=== PATIENT | female | born 1985 | race Caucasian/White ===

== ENCOUNTER 2016-09-10 14:19 | Emergency (ER) | payer BC ==
--- NOTE | ~2016-09-10 | CT2 ---
[facility] A Service [facility] RADIOLOGY TEXT RESULTS PATIENT: KALLI ADAMS LOCATION: SED : 83 UNIT #: [id number] AGE: [address]: Ramin Pereira MD SEX: F ORDER DR: [id number] [place] [id number] E MR#: [id number] Acc #: [id number] NAME: KALLI ADAMS : 1985 SEX: F STUDY DATE/TIME: 09/10/2016 16:27 UNIT: SED ROOM: STUDY DESCRIPTION: CT Abd and Pelv W Cont Attending Physician: Ramin Pereira M.D. Ordering Physician: Ramin Pereira M.D. Primary Care Physician: Wild Rodriguez M.D. MEDICAL IMAGING REPORT This report is preliminary unless electronic signature is present. EXAM CT abdomen and pelvis with contrast, 09/10/2016 INDICATION 31-year-old female with vomiting and abdomen pain since this morning. TECHNIQUE CT abdomen and pelvis was performed following the administration of IV contrast. Coronal and sagittal reformatted images obtained. This CT exam was performed with one or more of the following radiation dose reduction techniques: automatic exposure control, adjustment of mA and/or kV according to patient size, and iterative reconstruction. COMPARISON None. FINDINGS The lung bases are clear. The liver is unremarkable. The gallbladder is unremarkable. The spleen is unremarkable. The kidneys, adrenal glands and pancreas are unremarkable. PELVIS: The appendix is normal. There is no evidence for bowel obstruction. The colon is unremarkable. The remainder of the pelvis is unremarkable. Bone windows are unremarkable. IMPRESSION 1. No acute abnormality. 2. No bowel obstruction. 3. Normal appendix and gallbladder. [facility] A Service [facility] RADIOLOGY TEXT RESULTS PATIENT: KALLI ADAMS LOCATION: SED : 84 UNIT #: [id number] AGE: [address]: Ramin Pereira MD SEX: F ORDER DR: Dictated by... Zurdo R. Long, M.D. THIS IS AN ELECTRONICALLY VERIFIED REPORT Zurdo Long M.D. at 09/11/2016 10:02 AM GEOFFREY/magdalena TD: 09/11/2016 01:33 JOB #: [id number] MEDICAL IMAGING REPORT Page 1 of 1
[2016-09-10 14:16] LABS: BASOPHIL% 0.2 % (0-2.5); EOSINOPHIL# 0.1 X10e3 (0-0.7); EOSINOPHIL% 0.8 % (0.0-7.0); HEMATOCRIT 42.9 % (35.0-45.0); HEMOGLOBIN 13.9 gm/dL (12.0-16.0); LYMPHOCYTE# 1.8 X10e3 (1.0-3.5); LYMPHOCYTE% 11.7 % (17.0-45.0); MEAN CELL VOLUME 88.7 FL (83-96); MEAN CORPUSCULAR HEMOGLOBIN 28.7 PG (28-34); MEAN CORPUSCULAR HGB CONC 32.3 g/dL (30-36); MEAN PLATELET VOLUME 9.8 FL (6.5-11.5); MONOCYTE# 0.8 X10e3 (0-1.0); NEUTROPHIL% 82.3 % (40-75); PLATELET COUNT 250 X10e3 (140-420); RED BLOOD COUNT 4.83 X10e (3.90-5.30); RED CELL DISTRIBUTION WIDTH 13.5 % (11.0-15.5); WHITE BLOOD COUNT 15.8 X10e3 (4.0-10.5)
[2016-09-10 14:17] LABS: DIFF IND NO
[~2016-09-10 14:19] MED LIST: BIRTH CONTROL PILL
[2016-09-10 14:34] LABS: URINE SOURCE CLEAN CATCH
[2016-09-10 14:38] LABS: ALBUMIN SERUM 4.6 g/dL (3.5-5.0); BILIRUBIN, DIRECT 0.1 mg/dL (0.0-0.2); BILIRUBIN,INDIRECT 0.7 mg/dL (0.0-0.9); BILIRUBIN,TOTAL 0.8 mg/dL (0.2-2.0); BUN/CREATININE RATIO 18.75; CREATININE SERUM 0.8 mg/dL (0.6-1.4); GLOM FILT RATE Estimated 97.6 mL/min (>60); POTASSIUM 3.2 mmol/L (3.5-5.1)
[2016-09-10 14:39] LABS: URINE APPEARANCE CLEAR; URINE BILIRUBIN NEG (NEG); URINE BLOOD 3+ (NEG); URINE COLOR YELLOW; URINE GLUCOSE NEG (NORM); URINE KETONE 1+ (NEG); URINE LEUKOCYTE ESTERASE NEG (NEG); URINE NITRATE NEG (NEG); URINE PH 6.5 (5-8); URINE PROTEIN NEG (NEG); URINE SPECIFIC GRAVITY 1.015 (1.003-1.035); URINE UROBILINOGEN 0.2 MG/DL (NORM)
[2016-09-10 14:47] LABS: MICRO INDICATED? YES
[2016-09-10 14:49] LABS: URINE RBC 25-50 /[HPF] (0-2)
[2016-09-10 14:50] LABS: CULTURE INDICATED? YES; URINE BACTERIA 1+ (NEG); URINE SQUAMOUS EPITHELIAL CELL FEW /[HPF]
== END 2016-09-10 17:55 | disposition home or self-care (01) ==
LOC: SED 14:19
PROVIDERS: Emergency Medicine
DX: R11.2 Nausea with vomiting, unspecified (principal); R19.7 Diarrhea, unspecified; E87.6 Hypokalemia; R10.9 Unspecified abdominal pain; Z88.8 Allergy status to other drugs, medicaments and biological substances
CPT/HCPCS: 36415; 74177; 80048; 80076; 81003; 83690; 84703; 85025; 87086; 96374; 96375; 99284; J0780; J2405; J2550; Q9967